=== PATIENT | female | born 1950 | race Two or more races ===

== ENCOUNTER 2022-02-28 12:15 | Emergency (ER) | payer OTHER ==
[~2022-02-28] VITALS: Ht 160 cm; Wt 72.1 kg
[2022-02-28 12:15] VITALS: BP_SYST 156
[~2022-02-28 12:15] MED LIST: ALPR1TAB2 PO; AMLO5TAB4 PO; TEMA30CA5 PO; ZIPR60CA2 PO
[2022-02-28] MEDS ORDERED: HYDR-3917 PO (14:31)
[2022-02-28 14:34] VITALS: BP_SYST 137
== END 2022-02-28 14:34 | disposition home or self-care (01) ==
LOC: SED 12:15
DX: M54.50 Low back pain, unspecified (principal); I10 Essential (primary) hypertension; Z88.0 Allergy status to penicillin
CPT/HCPCS: 99281